=== PATIENT | male | born 2005 | race Two or more races ===

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

== ENCOUNTER 2025-02-01 07:49 | Inpatient (IN) | payer MEDICAID, OTHER ==
[~2025-02-01] VITALS: Ht 205.7 cm; Wt 103.6 kg
[~2025-02-01 07:49] MED LIST: DICL50TA2 PO
[2025-02-01 08:35] VITALS: PULSE 84; RESP 16; O2SAT 96
--- NOTE | 2025-02-01 09:25 | ED.PDOC ---
HPI (NEURO) HPI Comments 19 year old male DESTINY presents to the ED with chief complaint of near-syncope and leg weakness. 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 Patient relays that his mother caught him before he could hurt himself, but since then he has been unsteady on his legs and does not have the strength to get up or walk on his own. Patient notes that he is finding it hard to remember what he ate for dinner yesterday, but generally remembers the events that lead up to his near syncopal episode. Patient denies any numbness, headache, chest pain, SOB, nausea, vomiting, head injury, or back pain. Chief Complaint: General Weakness Time Seen by MD: 09:20 Primary Care Provider: unknown Reviewed Notes: Nurses Notes, Waiter/Waitress Room Service Notes, Medications, Allergies Information Source: Patient, Emergency Med Personnel Mode of Arrival: EMS Severity: Moderate Dizziness/Weakness Severity: Unable to do activities Headache Severity: None Timing: Hours Duration: Since onset Prehospital treatment: 12 Lead EKG Weakness Location: (R) Leg, (L) Leg Onset: At rest Circumstances: Spontaneous Symptoms: Near syncope, Imbalance, Weakness, Difficulty walking History of: None Modifying factors: Nothing Associated Signs and Symptoms: Weakness Past Medical History PAST MEDICAL HISTORY: Asthma Surgical History: Denies all surgeries Family History Family History: Reviewed,noncontributory to illness Social History Smoker: Non-Smoker Alcohol: Denies ETOH Use Drugs: Denies Drug Use Lives In: Home Constitutional: reports: weakness; denies: chills, diaphoresis, fatigue, fever, malaise, sweats, others EENTM: reports: ear ringing; denies: blurred vision, double vision, ear bleeding, ear discharge, ear drainage, ear pain, eye pain, eye redness, hearing loss, mouth pain, mouth swelling, nasal discharge, nose bleeding, nose congestion, nose pain, photophobia, tearing, throat pain, throat swelling, voice changes, others Respiratory: denies: cough, hemoptysis, orthopnea, SOB at rest, shortness of breath, SOB with excertion, stridor, wheezing, others Cardiovascular: reports: syncope; denies: chest pain, dizzy spells, diaphoresis, Dyspnea on exertion, edema, irregular heart beat, left arm pain, lightheadedness, palpitations, PND, others Gastrointestinal: denies: abdomen distended, abdominal pain, blood streaked bowels, constipated, diarrhea, dysphagia, difficulty swallowing, hematemesis, melena, nausea, poor appetite, poor fluid intake, rectal bleeding, rectal pain, vomiting, others Genitourinary: denies: burning, dysuria, flank pain, frequency, hematuria, incontinence, penile discharge, penile sore, pain, testicle pain, testicle swelling, urgency, others Neurological: denies: dizziness, fainting, headache, left sided numbness, left sided weakness, numbness, paresthesia, pre-existing deficit, right sided numbness, right sided weakness, seizure, speech problems, tingling, tremors, weakness, others Musculoskeletal: denies: back pain, gout, joint pain, joint swelling, muscle pain, muscle stiffness, neck pain, others Integumetry: denies: bruises, change in color, change in hair/nails, dryness, laceration, lesions, lumps, rash, wounds, others Allergic/Immunocompromised: denies: Difficulty Healing, Frequent Infections, Hives, Itching, others Hematologic/Lymphatic: denies: anemia, blood clots, easy bleeding, easy bruising, swollen glands, others Endocrine: denies: excessive hunger, excessive sweating, excessive thirst, excessive urination, flushing, intolerance to cold, intolerance to heat, unexplained weight gain, unexplained weight loss, others Psychiatric: denies: anxiety, bipolar disorder, depression, hopeless, panic disorder, schizophrenia, sleepless, suicidal, others All Other Systems: Reviewed and Negative Physical Exam General Appearance: No Apparent Distress, Normal HEENT: Normal ENT Inspection, Pharynx Normal, TMs Normal Neck: Full Range of Motion, Non-Tender, Normal, Normal Inspection Respiratory: Chest Non-Tender, Lungs Clear, No Accessory Muscle Use, No R espiratory Distress, Normal Breath Sounds Cardiovascular: No Edema, No JVD, No Murmur, No Gallop, Normal Peripheral Pulses, Regular Rate/Rhythm Breast Exam: Deferred Gastrointestinal: No Organomegaly, Non Tender, No Pulsatile Mass, Normal Bowel Sounds, Soft Genitalia: Deferred Pelvic: Deferred Rectal: Deferred Extremities: No calf tenderness, Normal capillary refill, Normal inspection, Normal range of motion, Non-tender, No pedal edema Musculoskeletal : Apperance: Normal Neurologic: Alert, fuselage framer II-XII nml as Tested, Normal Affect, Normal Mood Cerebellar Function: Normal Reflexes: Normal Skin: Dry, Normal Color, Warm Lymphatic: No Adenopathy EKG EKG : Pulse Rate (adult): 81 Crawford: Normal Cardiac Rhythm: NSR Block: None Hypertrophy: None ST: Normal Comments Inverted T-waves to III and AVF. Was a procedure done? Was a procedure done?: No Differential Diagnosis (SZ) General Weakness: Anemia, Dehydration, Electrolyte imbalance, Other (Substance abuse, brain tumor, spinal mass, transverse myeloitis) X-Ray, Labs, Meds, VS Vital Signs Date Time Temp Pulse Resp B/P (MAP) Pulse Ox O2 Delivery O2 Flow Rate FiO2 02/01/25 09:25 81 02/01/25 08:44 81 02/01/25 08:35 84 16 96 Room Air* 0 21 02/01/25 08:25 97.9 84 16 131/79 (96) 96 97.9 02/01/25 08:25 84 16 96 Room Air 02/01/25 08:08 98.7 82 16 139/84 (102) 98 98.7 Lab Test 02/01/25 09:48 Range/Units White Blood Count 12.7 H 4.4-10.8 10^3/uL Red Blood Count 5.75 4.5-5.90 10^6/uL Hemoglobin 16.3 13.5-17.5 g/dL Hematocrit 48.6 41.0-53.0 % Mean Corpuscular Volume 84.5 80.0-100.0 fL Mean Corpuscular Hemoglobin 28.2 28.0-32.0 pg Mean Corpuscular Hemoglobin Concent 33.4 32.0-36.0 g/dL Red Cell Distribution Width 13.3 11.8-14.3 % Platelet Count 340 140-450 10^3/uL Mean Platelet Volume 8.2 6.9-10.8 fL Neutrophils (%) (Auto) 77.7 37.0-80.0 % Lymphocytes (%) (Auto) 15.0 10.0-50.0 % Monocytes (%) (Auto) 4.7 0.0-12.0 % Eosinophils (%) (Auto) 2.1 0.0-7.0 % Basophils (%) (Auto) 0.5 0.0-2.0 % Neutrophils # (Auto) 9.9 H 1.6-8.6 10 ^3/uL Lymphocytes # (Auto) 1.9 0.4-5.4 10 ^3/uL Monocytes # (Auto) 0.6 0-1.3 10 ^3/uL Eosinophils # (Auto) 0.3 0-0.8 10 ^3/uL Basophils # (Auto) 0.1 0-0.2 10 ^3/uL Nucleated Red Blood Cells 0.0 % Sodium Level 142 136-145 mmol/L Potassium Level 4.2 3.5-5.1 mmol/L Chloride Level 105 98-107 mmol/L Carbon Dioxide Level 29 20-31 mmol/L Anion Gap 8 5-15 Blood Urea Nitrogen 7 L 9-23 mg/dL Creatinine 0.78 0.700-1.30 mg/dL Glomerular Filtration Rate Calc 130 >90 mL/min BUN/Creatinine Ratio 9.0 L 10.0-20.0 Serum Glucose 101 74-106 mg/dL Calcium Level 9.9 8.7-10.4 mg/dL Total Bilirubin 0.6 0.2-1.0 mg/dL Aspartate Amino Transferase (AST) 29 13-40 U/L Alanine Aminotransferase (ALT) 60 H 7-40 U/L Alkaline Phosphatase 78 46-116 U/L Troponin I High Sensitivity 3 L </=54 ng/L Total Protein 7.8 5.7-8.2 g/dL Albumin 4.8 3.2-4.8 g/dL Thyroid Stimulating Hormone (TSH) 1.56 0.55-4.78 uIU/mL Current Medications Medications (Trade) Dose Ordered Sig/Deloris Route Start Time Stop Time Status Last Admin Sodium Chloride 2,000 ml @ 1,000 mls/hr Q2H ONCE IV 02/01/25 09:30 02/01/25 11:29 DC 02/01/25 09:32 PATIENT: HELEN BACAT: [id number] UNIT: [id number] : 2005 [facility]GE / SEX: 19 / M ADM STATUS: ADM IN SERVICE 6 ORDERING PHYSICIAN: SHANNON TIERNEY MD PROCEDURE(s): HDCT - HEAD W WO CONTRAST REASON: ro brain bleed and brain mass ORDER NUMBER(s): [id number], ACCESSION NUMBER(s): [id number] CLINICAL INFORMATION: 19 years old, Male; rule out brain bleed and brain mass. No other clinical information provided. TECHNIQUE: Axial imaging was obtained through the brain prior to and after the uneventful administration of 80 mL Omnipaque 300 IV contrast. Coronal and sag ittal reformatted images were obtained, reviewed, and stored. Images were reviewed in brain and bone windows. All CT scans at this medical facility are performed using dose modulation techniques as appropriate to a performed exam including the following: Automated exposure control was utilized; adjustment of the MA and/or KV according to patient size; and use of iterative reconstruction technique. CTDIvol = 58.7, 58.89, 0.07 mGy DLP = 1882.88 mGy-cm COMPARISON: None FINDINGS: There is no acute intracranial hemorrhage. No mass effect or midline shift. No abnormal postcontrast enhancement. The ventricles and sulci are within normal limits in size for age. Basal cisterns are patent. The calvarium is unremarkable. Mild mucosal thickening and areas of partial opacification in the visualized portions of the paranasal sinuses. Retention cysts versus polyps in the maxillary sinuses. Mastoid air cells are clear. IMPRESSION: 1. No CT evidence of acute intracranial abnormality. 2. No CT evidence for enhancing mass or abnormal postcontrast enhancement. 3. Paranasal sinus disease as described above. ATED BY: SHAWN JAMISON DO DICTATED DATE/TIME: 02/01/251033 SIGNED BY: SHAWN JAMISON DO SIGNED DATE/TIME: 02/01/251033 CC: 19-year-old male presents here status post syncopal episode. Patient states he was speaking to mother had ringing in the right here and suddenly started to faint. Fall was caught by his mother. Medics were called and patient was assisted to a chair in the ER. I attempted to have the patient stand up however he was extremely weak in the legs and unable to go from a sitting to a standing position. I considered possible brain tumor, spinal masses, transverse myelitis. CT of the brain was done with and without contrast with no evidence of brain tumor. Blood work including CBC CMP troponin has been done which are all unremarkable. At this time however patient is still unable to bear weight on his leg. Therefore patient has been admitted to hospitalist team. For further care. And potentially MRI of the brain. Time of 1ST Reevaluation: 09:50 Reevaluation 1ST: Unchanged Patient Education/Counseling: Diagnosis, Treatment Family Education/Counseling: No Family Present Departure 1 Departure Time of Disposition: 13:01 Impression: Primary Impression: Syncope Qualified Codes: R55 - Syncope and collapse Additional Impressions: Generalized weakness Memory loss Leg weakness, bilateral Disposition: ADMITTED INPATIENT Condition: Stable Critical Care Note Critical Care Time?: No Stability Stability form required: No Heart Score Heart Score: Heart Score Response (Comments) Value History N/A 0 EKG N/A 0 Age N/A 0 Risk Factors N/A 0 Troponin N/A 0 Total 0 I personally scribed for SHANNON TIERNEY MD ([email or web address]) on 02/01/25 at 09:25. Electronically submitted by Marek Cardona ([email or web address]). I personally scribed for SHANNON TIERNEY MD ([email or web address]) on 02/01/25 at 13:02. Electronically submitted by Marek Cardona ([email or web address]). SHANNON TIERNEY MD Feb 01, 2025 09:25
[2025-02-01] MEDS: SODIUM CHLORIDE 0.9% 2,000 ML IV ONE (09:32)
[2025-02-01 09:57] LABS: Basophils # (auto) 0.1 10 ^3/uL (0-0.2); Basophils % (auto) 0.5 % (0.0-2.0); Eosinophils # (auto) 0.3 10 ^3/uL (0-0.8); Eosinophils % (auto) 2.1 % (0.0-7.0); Hematocrit 48.6 % (41.0-53.0); Hemoglobin 16.3 g/dL (13.5-17.5); Lymphocytes # (auto) 1.9 10 ^3/uL (0.4-5.4); Mean Corpuscular Hemoglobin 28.2 pg (28.0-32.0); Mean Corpuscular Hgb Conc. 33.4 g/dL (32.0-36.0); Mean Corpuscular Volume 84.5 fL (80.0-100.0); Monocytes # (auto) 0.6 10 ^3/uL (0-1.3); Monocytes % (auto) 4.7 % (0.0-12.0); Neutrophils # (auto) 9.9 10 ^3/uL (1.6-8.6); Neutrophils % (auto) 77.7 % (37.0-80.0); Platelet Count (auto) 340 10^3/uL (140-450); Red Blood Cells 5.75 10^6/uL (4.5-5.90); Red Cell Distribution Width 13.3 % (11.8-14.3); White Blood Cell 12.7 10^3/uL (4.4-10.8)
[2025-02-01 10:13] LABS: Alkaline Phosphatase 78 U/L (46-116); Anion Gap 8 (5-15); Aspartate Aminotransferase 29 U/L (13-40); Bilirubin, Total 0.6 mg/dL (0.2-1.0); Calcium 9.9 mg/dL (8.7-10.4); Carbon Dioxide 29 mmol/L (20-31); Chloride 105 mmol/L (98-107); Glucose 101 mg/dL (74-106); Potassium 4.2 mmol/L (3.5-5.1); Sodium 142 mmol/L (136-145); Total Protein 7.8 g/dL (5.7-8.2)
[2025-02-01 10:14] LABS: Alanine Aminotransferase 60 U/L (7-40); Albumin 4.8 g/dL (3.2-4.8); Blood Urea Nitrogen 7 mg/dL (9-23)
[2025-02-01] MEDS ORDERED: ONDANSETRON HCL 4 MG/2 ML VIAL IV PRN (10:15)
[2025-02-01] MEDS ORDERED: ACETAMINOPHEN 325 MG TAB PO PRN (10:15)
[2025-02-01] MEDS: IOHEXOL 300 MG/ML 100ML BOTTLE IJ ONE ×2 (10:29)
--- NOTE | 2025-02-01 10:36 | DVH ---
CLINICAL INFORMATION: 19 years old, Male; rule out brain bleed and brain mass. No other clinical in formation provided. TECHNIQUE: Axial imaging was obtained through the brain prior to and after the uneventful administrat ion of 80 mL Omnipaque 300 IV contrast. Coronal and sagittal reformatted images were obtained, review ed, and stored. Images were reviewed in brain and bone windows. All CT scans at this medical facilit y are performed using dose modulation techniques as appropriate to a performed exam including the fol lowing: Automated exposure control was utilized; adjustment of the MA and/or KV according to patient size; and use of iterative reconstruction technique. CTDIvol = 58.7, 58.89, 0.07 mGy DLP = 1882.88 mG y-cm COMPARISON: None FINDINGS: There is no acute intracranial hemorrhage. No mass effect or midline shift. No abnormal pos tcontrast enhancement. The ventricles and sulci are within normal limits in size for age. Basal ciste rns are patent. The calvarium is unremarkable. Mild mucosal thickening and areas of partial opacific ation in the visualized portions of the paranasal sinuses. Retention cysts versus polyps in the maxil yumiko sinuses. Mastoid air cells are clear. IMPRESSION: 1. No CT evidence of acute intracranial abnormality. 2. No CT evidence for enhancing mass or abnormal postcontrast enhancement. 3. Paranasal sinus disease as described above.
[2025-02-01] MEDS: cefTRIAXone 1GM/50ML D5W 50 ML IV SCH (10:37)
--- NOTE | 2025-02-01 10:52 | DVHHP2 ---
History of Present Illness Reason for Visit: Syncope History of Present Illness Rudolph Cool is a 19-year-old male with past medical history of asthma who presents to the ED with sudden weakness. 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 Patient states that he did not fall or lose consciousness or strike his head. He also reports that his abdomen feels like there is a churning sensation. Patient states that this is the 1st time that this has happened. He does state that he had more than enough rest last night before his shift. Patient denies any recent trauma or injury, recent ingestion of spoiled food, recent travels, recent sick contacts, abdominal pain, nausea, vomiting, diarrhea, chest pain, shortness of breath, fever, chills, lightheadedness or dizziness. Patient also denies urinary symptoms or cough or congestion. Patient denies drinking, smoking, or illicit drug use. Patient reports that he feels much better and can walk. Discussed risks and benefits of leaving against medical advice and patient decided to stay. Pulmonary: Asthma Past Surgical History: None Family History: None Smoke: No ALCOHOL: none Drugs: None Lives: with Family Domestic Violence: Neg Review of Systems Constitutional: Yes: Weakness Allergies: Coded Allergies: NO KNOWN ALLERGIES (Unverified , 10/23/22) Exam Vital Signs Vital Signs Date Time Temp Pulse Resp B/P (MAP) Pulse Ox O2 Delivery O2 Flow Rate FiO2 02/01/25 09:25 81 02/01/25 08:35 16 96 Room Air* 0 21 02/01/25 08:25 97.9 131/79 (96) 97.9 General Appearance: Alert, Oriented X3, Cooperative, No acute distress HEENT: Atraumatic, PERRLA, EOMI, Mucous membr. moist/pink Respiratory: Clear to auscultation, Normal air movement Cardiovascular: Regular rate, Normal S1, Normal S2, No murmurs Abdominal: Normal bowel sounds, Soft, No tenderness, No hepatospenomegaly, No masses Extremities: No clubbing, No cyanosis, No edema, Normal pulses, No tenderness/swelling Skin: No significant lesion Neuro: Normal speech, Strength at 5/5 X4 ext, Normal tone, Sensation intact Psych/Mental Status: Mental status NL, Mood NL Labs/Xrays Labs Test 02/01/25 09:48 Range/Units White Blood Count 12.7 H 4.4-10.8 10^3/uL Red Blood Count 5.75 4.5-5.90 10^6/uL Hemoglobin 16.3 13.5-17.5 g/dL Hematocrit 48.6 41.0-53.0 % Mean Corpuscular Volume 84.5 80.0-100.0 fL Mean Corpuscular Hemoglobin 28.2 28.0-32.0 pg Mean Corpuscular Hemoglobin Concent 33.4 32.0-36.0 g/dL Red Cell Distribution Width 13.3 11.8-14.3 % Platelet Count 340 140-450 10^3/uL Mean Platelet Volume 8.2 6.9-10.8 fL Neutrophils (%) (Auto) 77.7 37.0-80.0 % Lymphocytes (%) (Auto) 15.0 10.0-50.0 % Monocytes (%) (Auto) 4.7 0.0-12.0 % Eosinophils (%) (Auto) 2.1 0.0-7.0 % Basophils (%) (Auto) 0.5 0.0-2.0 % Neutrophils # (Auto) 9.9 H 1.6-8.6 10 ^3/uL Lymphocytes # (Auto) 1.9 0.4-5.4 10 ^3/uL Monocytes # (Auto) 0.6 0-1.3 10 ^3/uL Eosinophils # (Auto) 0.3 0-0.8 10 ^3/uL Basophils # (Auto) 0.1 0-0.2 10 ^3/uL Nucleated Red Blood Cells 0.0 % Sodium Level 142 136-145 mmol/L Potassium Level 4.2 3.5-5.1 mmol/L Chloride Level 105 98-107 mmol/L Carbon Dioxide Level 29 20-31 mmol/L Anion Gap 8 5-15 Blood Urea Nitrogen 7 L 9-23 mg/dL Creatinine 0.78 0.700-1.30 mg/dL Glomerular Filtration Rate Calc 130 >90 mL/min BUN/Creatinine Ratio 9.0 L 10.0-20.0 Serum Glucose 101 74-106 mg/dL Calcium Level 9.9 8.7-10.4 mg/dL Total Bilirubin 0.6 0.2-1.0 mg/dL Aspartate Amino Transferase (AST) 29 13-40 U/L Alanine Aminotransferase (ALT) 60 H 7-40 U/L Alkaline Phosphatase 78 46-116 U/L Troponin I High Sensitivity 3 L </=54 ng/L Total Protein 7.8 5.7-8.2 g/dL Albumin 4.8 3.2-4.8 g/dL Thyroid Stimulating Hormone (TSH) 1.56 0.55-4.78 uIU/mL CLINICAL INFORMATION: 19 years old, Male; rule out brain bleed and brain mass. No other clinical information provided. TECHNIQUE: Axial imaging was obtained through the brain prior to and after the uneventful administration of 80 mL Omnipaque 300 IV contrast. Coronal and sagittal reformatted images were obtained, reviewed, and stored. Images were reviewed in brain and bone windows. All CT scans at this medical facility are performed using dose modulation techniques as appropriate to a performed exam including the following: Automated exposure control was utilized; adjustment of the MA and/or KV according to patient size; and use of iterative reconstruction technique. CTDIvol = 58.7, 58.89, 0.07 mGy DLP = 1882.88 mGy-cm COMPARISON: None FINDINGS: There is no acute intracranial hemorrhage. No mass effect or midline shift. No abnormal postcontrast enhancement. The ventricles and sulci are within normal limits in size for age. Basal cisterns are patent. The calvarium is unremarkable. Mild mucosal thickening and areas of partial opacification in the visualized portions of the paranasal sinuses. Retention cysts versus polyps in the maxillary sinuses. Mastoid air cells are clear. IMPRESSION: 1. No CT evidence of acute intracranial abnormality. 2. No CT evidence for enhancing mass or abnormal postcontrast enhancement. 3. Paranasal sinus disease as described above. Assessment/Plan Assessment/Plan Assessment Autonomic imbalance Tinnitus Leukocytosis possible otitis media versus sinusitis History of asthma Plan Admit to med surge CT head NS 2 L given ED Troponin negative TSH UA UDS EKG Antiemetics Pain management Diet IV antibiotics-ceftriaxone Chest x-ray ordered Echo ordered Per patient no home medications that he takes DVT prophylaxis-Lovenox PUD prophylaxis- not indicated no history of GERD or GI bleed Discussed plan of care with patient and nurse Rounding team consider neuro consult if symptoms worsen Plan discussed with: Patient My Orders Orders - THON,SALINA K SHELL MOLDER Procedure Category Date Status Time Ceftriaxone 1gm/50ml PHA 02/01/25 Logged D5w (Rocephin) 10:15 Echo 2d Mode Cardiac US 02/01/25 Logged DOP 10:11 Admit ADMIT 02/01/25 Transmitted 10:11 Allergies IWONA 02/01/25 In Process 10:11 Code Status CODE 02/01/25 Transmitted 10:11 Ondansetron Hcl PHA 02/01/25 Logged (Zofran) 10:15 Complete Blood Count LAB 02/02/25 Verified 04:00 Comprehensive LAB 02/02/25 Verified Metabolic Panel 04:00 Cardiac DIET 02/01/25 Transmitted Diet-2gna,Lofat,Lochol Lunch Acetaminophen Tablet PHA 02/01/25 Transmitted (Tylenol Tablet) 10:15 Sequential IWONA 02/01/25 In Process Compression Device 10:11 Date of Service: Feb 01, 2025 Billing Provider: JOHANA WELCH Common Visit Codes: [id number] INP/OBS CARE (HIGH) JOHANA WELCH Feb 01, 2025 10:52
--- NOTE | 2025-02-01 10:53 | DVH ---
CLINICAL INFORMATION: Pneumonia. No other clinical information provided. TECHNIQUE: Single AP portable chest radiograph was obtained. COMPARISON: None FINDINGS: Lungs: Clear. Cardiac: Heart size is within normal limits. Pulmonary vasculature: Unremarkable. Mediastinum/rasheed: Unremarkable. Bones: No acute osseous abnormality identified. Other: No other significant findings. IMPRESSION: No evidence of acute disease in the chest.
[2025-02-01] MEDS: FLUTICASONE PROP NASAL SPR 0.05 % (50MCG) 16GM EACHNOSTRI SCH (11:12)
[2025-02-01 14:03] VITALS: BP 118/69; PULSE 66; RESP 16; TEMP 97.8; O2SAT 98
[2025-02-01 14:28] VITALS: BP 118/69; PULSE 66; RESP 16; RESP 18; TEMP 97.8; O2SAT 98
[2025-02-01 17:00] VITALS: BP 108/56; PULSE 67; RESP 16; TEMP 98.4; O2SAT 98
[2025-02-01 20:00] VITALS: PULSE 64; RESP 16; O2SAT 95
[2025-02-01 21:00] VITALS: BP 109/61; PULSE 64; RESP 16; TEMP 97.8; O2SAT 95
[2025-02-02] VITALS (8 sets, daily range): BP systolic 108–122; BP diastolic 54–79; PULSE 68–85; RESP 16–20; TEMP 97.7–98.6; O2SAT 97–100
[2025-02-02 07:10] LABS: Urine Bacteria None Seen /hpf (None Seen)
[2025-02-02 07:25] LABS: Urine Blood Negative /uL (Negative); Urine Clarity Clear (Clear); Urine Color Light-Yellow (Yellow); Urine Protein, UAD Negative (Negative); Urine Specific Gravity 1.013 (1.001-1.035); Urine Squamous Epithelial Cell None Seen /hpf (<5); Urine Urobilinogen Normal (Negative); Urine WBC < 1 /HPF (0-3); Urine pH 7.5 (5.0-9.0)
[2025-02-02 07:25] LABS: Basophils # (auto) 0.1 10 ^3/uL (0-0.2); Basophils % (auto) 0.7 % (0.0-2.0); Eosinophils # (auto) 0.5 10 ^3/uL (0-0.8); Eosinophils % (auto) 5.1 % (0.0-7.0); Hematocrit 47.6 % (41.0-53.0); Hemoglobin 15.9 g/dL (13.5-17.5); Lymphocytes # (auto) 3.2 10 ^3/uL (0.4-5.4); Lymphocytes % (auto) 33.7 % (10.0-50.0); Mean Corpuscular Hemoglobin 28.2 pg (28.0-32.0); Mean Corpuscular Hgb Conc. 33.5 g/dL (32.0-36.0); Mean Corpuscular Volume 84.3 fL (80.0-100.0); Monocytes # (auto) 0.8 10 ^3/uL (0-1.3); Neutrophils # (auto) 4.9 10 ^3/uL (1.6-8.6); Neutrophils % (auto) 52.5 % (37.0-80.0); Nucleated Red Blood Cells % 0.1 %; Platelet Count (auto) 335 10^3/uL (140-450); Red Blood Cells 5.65 10^6/uL (4.5-5.90); Red Cell Distribution Width 13.3 % (11.8-14.3); White Blood Cell 9.4 10^3/uL (4.4-10.8)
[2025-02-02 07:42] LABS: Albumin 4.5 g/dL (3.2-4.8); Alkaline Phosphatase 67 U/L (46-116); Aspartate Aminotransferase 33 U/L (13-40); BUN/Creatinine Ratio 8.1 (10.0-20.0); Bilirubin, Total 0.9 mg/dL (0.2-1.0); Calcium 9.8 mg/dL (8.7-10.4); Chloride 104 mmol/L (98-107); Potassium 3.6 mmol/L (3.5-5.1); Sodium 140 mmol/L (136-145); Total Protein 7.3 g/dL (5.7-8.2)
[2025-02-02 07:45] LABS: Alanine Aminotransferase 65 U/L (7-40); Blood Urea Nitrogen 7 mg/dL (9-23); Glucose 65 mg/dL (74-106)
[2025-02-02 07:49] LABS: Anion Gap 10 (5-15); Carbon Dioxide 26 mmol/L (20-31)
[2025-02-02 08:01] LABS: Amphetamine Screen, Urine Neg (NEGATIVE); Barbiturate Scree,Urine Neg (NEGATIVE); Benzodiazephine Screen, Urine Neg (NEGATIVE); Cannabinoid Screen, Urine Neg (NEGATIVE); Cocaine Screen, Urine Neg (NEGATIVE); Opiate Scree,Urine Neg (NEGATIVE); Phencyclidine Screen, Urine Neg (NEGATIVE)
--- NOTE | 2025-02-02 13:17 | DVHPN2 ---
Reviewed: Care Plan, H&P, Labs, Medications, Previous Orders, Radiology Changes from previous H/P or p: No Changes Objective Vitals Vital Signs Date Time Temp Pulse Resp B/P (MAP) Pulse Ox O2 Delivery O2 Flow Rate FiO2 02/02/25 11:48 98.0 76 18 112/58 (76) 100 98.0 02/02/25 08:00 Room Air* 0 21 Intake/Output Intake and Output 02/02/25 07:00 Intake Total 1000 ml Balance 1000 ml Intake Oral 1000 ml Medications Current Medications Medications Dose Ordered Sig/Deloris Route Start Time Stop Time Status Last Admin Dose Admin Ceftriaxone Sodium 50 ml @ 100 mls/hr DAILY@09 IV 02/01/25 10:15 02/02/25 08:44 100 MLS/HR Ondansetron HCl 4 mg Q4HP PRN IV 02/01/25 10:15 Acetaminophen 650 mg Q6HP PRN PO 02/01/25 10:15 Fluticasone Propionate 50 mcg Q12HR EACHNOSTRI 02/01/25 10:30 02/02/25 10:26 50 MCG Laboratory Results Laboratory Tests 02/02/25 05:38 Chemistry Test 02/02/25 05:38 Albumin 4.5 g/dL (3.2-4.8) Calcium Level 9.8 mg/dL (8.7-10.4) Total Protein 7.3 g/dL (5.7-8.2) LFT Test 02/02/25 05:38 Alanine Aminotransferase (ALT) 65 U/L (7-40) H Alkaline Phosphatase 67 U/L (46-116) Aspartate Amino Transferase (AST) 33 U/L (13-40) Total Bilirubin 0.9 mg/dL (0.2-1.0) Urinalysis Test 02/02/25 07:08 Urine Color Light-yellow (Yellow) Urine Clarity Clear (Clear) Urine pH 7.5 (5.0-9.0) Urine Specific [place] 1.013 (1.001-1.035) Urine Protein Negative (Negative) Urine Ketones Negative (Negative) Urine Blood Negative /uL (Negative) Urine Nitrite Negative (Negative) Urine Bilirubin Negative (Negative) Urine Urobilinogen Normal mg/dL (Negative) Urine Leukocyte Esterase Negative /uL (Negative) Urine RBC 1 /hpf (0 - 3) Urine Microscopic WBC < 1 /HPF (0-3) Urine Squamous Epithelial Cells None seen /hpf (<5) Urine Bacteria None seen /hpf (None Seen) Urine Glucose Normal mg/dL (Normal) Labs and/or images reviewed: Labs reviewed by me, Image(s) reviewed by me Assessment/Plan Assessment/Plan Autonomic imbalance Tinnitus Leukocytosis possible otitis media versus sinusitis: Rocephin History of asthma CT head negative Chest x-ray negative Plan discussed with: Patient Date of Service: Feb 02, 2025 Billing Provider: JOSEFINA COLLADO MD Common Visit Codes: [id number] INP/OBS CARE(HIGH) JOSEFINA COLLADO MD Feb 02, 2025 13:17
--- NOTE | 2025-02-02 20:49 | DVHSR ---
APPROVED REPORT EXAM: LIMITED Two-dimensional and M-mode echocardiogram with Doppler and color Doppler. Blood Pressure: 109/56 mmHg INDICATION Syncope RISK FACTORS Obesity: Height: 6' 9", Weight: 210 DIMENSIONS LVDd5.0 (3.8-5.7cm)LA (2D)3.7 (1.9-4.0cm)Aortic Root2.7 (2.0-3.7cm) LVDs3.6 (2.5-4.0cm)LA (MM) (1.9-4.0cm)Aortic Cusp Exc1.5 (1.5-2.0cm) EF (%) 55.0 (55-70%)Rt. Atrium3.4 (1.9-4.0cm)Asc. Aorta cm IVSd0.9 (0.7-1.1cm)RV (D) (1.8-2.4cm) PWd0.9 (0.7-1.1cm) Mitral Valve MitralMitral Stenosis E wave1.00m/sMV Mean GR.mmHg A wave0.50m/sMV Peak GR.mmHg E/A ratio2.02D MVAcm2 Aortic Valve Aortic ValveAortic Stenosis V10.60m/Kala Mean GR.3mmHg V21.20m/Kala Peak GR.6mmHg LVOT Diameter1.9 (1.8-2.4cm)Doppler AVA1.42cm2 Pulmonic Valve V20.70m/s Other Information Quality : Technically LimitedRhythm : Technically limited study due to body habitus. Conclusion LV EF IS 65% NORMAL VALVES NORMAL RV FUNCTION NO EFFUSION
[2025-02-03 01:00] VITALS: BP 108/70; PULSE 88; RESP 19; TEMP 97.9; O2SAT 100
[2025-02-03 05:00] VITALS: BP 120/77; PULSE 86; RESP 18; TEMP 97.9; O2SAT 98
[2025-02-03 08:00] VITALS: PULSE 75; RESP 18; O2SAT 98
[2025-02-03 08:29] VITALS: BP 128/62; PULSE 75; RESP 18; TEMP 98.6; O2SAT 98
--- NOTE | 2025-02-03 09:45 | DVHPN2 ---
Reviewed: Care Plan, H&P, Labs, Medications, Previous Orders, Radiology Changes from previous H/P or p: No Changes Objective Vitals Vital Signs Date Time Temp Pulse Resp B/P (MAP) Pulse Ox O2 Delivery O2 Flow Rate FiO2 02/03/25 08:29 98.6 75 18 128/62 (84) 98 98.6 02/03/25 08:00 Room Air* 0 21 Intake/Output Intake and Output 02/03/25 07:00 Intake Total 1885 ml Output Total 500 ml Balance 1385 ml Intake Oral 1885 ml Output Urine Total 500 ml # Voids 2 Medications Current Medications Medications Dose Ordered Sig/Deloris Route Start Time Stop Time Status Last Admin Dose Admin Ceftriaxone Sodium 50 ml @ 100 mls/hr DAILY@09 IV 02/01/25 10:15 02/03/25 08:03 100 MLS/HR Ondansetron HCl 4 mg Q4HP PRN IV 02/01/25 10:15 Acetaminophen 650 mg Q6HP PRN PO 02/01/25 10:15 Fluticasone Propionate 50 mcg Q12HR EACHNOSTRI 02/01/25 10:30 02/02/25 10:26 50 MCG Laboratory Results Laboratory Tests 02/02/25 05:38 Urinalysis Test 02/02/25 07:08 Urine Color Light-yellow (Yellow) Urine Clarity Clear (Clear) Urine pH 7.5 (5.0-9.0) Urine Specific [place] 1.013 (1.001-1.035) Urine Protein Negative (Negative) Urine Ketones Negative (Negative) Urine Blood Negative /uL (Negative) Urine Nitrite Negative (Negative) Urine Bilirubin Negative (Negative) Urine Urobilinogen Normal mg/dL (Negative) Urine Leukocyte Esterase Negative /uL (Negative) Urine RBC 1 /hpf (0 - 3) Urine Microscopic WBC < 1 /HPF (0-3) Urine Squamous Epithelial Cells None seen /hpf (<5) Urine Bacteria None seen /hpf (None Seen) Urine Glucose Normal mg/dL (Normal) Labs and/or images reviewed: Labs reviewed by me, Image(s) reviewed by me Assessment/Plan Assessment/Plan Autonomic imbalance Tinnitus Leukocytosis possible otitis media versus sinusitis: Rocephin History of asthma CT head negative Chest x-ray negative Patient feels better and wants to go home Plan discussed with: Patient My Orders Orders - JOSEFINA COLLADO MD Procedure Category Date Status Time Pt Request For Service PT 02/02/25 Logged 13:22 Date of Service: Feb 03, 2025 Billing Provider: JOSEFINA COLLADO MD Common Visit Codes: [id number] INP/OBS CARE(HIGH) JOSEFINA COLLADO MD Feb 03, 2025 09:45
[2025-02-03] MEDS ORDERED: AUG875T PO (09:47)
--- NOTE | 2025-02-03 09:52 | DVHDS2 ---
Discharge Summary Date of Admission Feb 01, 2025 at 10:11 Date of Discharge: Feb 03, 2025 Admitting Diagnosis Tinnitus and dizziness Wounds: None Labs/Diagnostic Data: Laboratory Results Test 02/02/25 07:08 02/02/25 05:38 02/01/25 11:11 02/01/25 09:48 Urine Color Light-yellow (Yellow) Urine Clarity Clear (Clear) Urine pH 7.5 (5.0-9.0) Urine Specific [place] 1.013 (1.001-1.035) Urine Protein Negative (Negative) Urine Ketones Negative (Negative) Urine Blood Negative /uL (Negative) Urine Nitrite Negative (Negative) Urine Bilirubin Negative (Negative) Urine Urobilinogen Normal mg/dL (Negative) Urine Leukocyte Esterase Negative /uL (Negative) Urine RBC 1 /hpf (0 - 3) Urine Microscopic WBC < 1 /HPF (0-3) Urine Squamous Epithelial Cells None seen /hpf (<5) Urine Bacteria None seen /hpf (None Seen) Urine Glucose Normal mg/dL (Normal) Urine Opiates Screen Neg (NEGATIVE) Urine Fentanyl Screen Neg (NEGATIVE) Urine Barbiturates Screen Neg (NEGATIVE) Urine Phencyclidine Screen Neg (NEGATIVE) Urine Amphetamines Screen Neg (NEGATIVE) Urine Benzodiazepines Screen Neg (NEGATIVE) Urine Cocaine Screen Neg (NEGATIVE) Urine Cannabinoids Screen Neg (NEGATIVE) White Blood Count 9.4 10^3/uL (4.4-10.8) Red Blood Count 5.65 10^6/uL (4.5-5.90) Hemoglobin 15.9 g/dL (13.5-17.5) Hematocrit 47.6 % (41.0-53.0) Mean Corpuscular Volume 84.3 fL (80.0-100.0) Mean Corpuscular Hemoglobin 28.2 pg (28.0-32.0) Mean Corpuscular Hemoglobin Concent 33.5 g/dL (32.0-36.0) Red Cell Distribution Width 13.3 % (11.8-14.3) Platelet Count 335 10^3/uL (140-450) Mean Platelet Volume 8.6 fL (6.9-10.8) Neutrophils (%) (Auto) 52.5 % (37.0-80.0) Lymphocytes (%) (Auto) 33.7 % (10.0-50.0) Monocytes (%) (Auto) 8.0 % (0.0-12.0) Eosinophils (%) (Auto) 5.1 % (0.0-7.0) Basophils (%) (Auto) 0.7 % (0.0-2.0) Neutrophils # (Auto) 4.9 10 ^3/uL (1.6-8.6) Lymphocytes # (Auto) 3.2 10 ^3/uL (0.4-5.4) Monocytes # (Auto) 0.8 10 ^3/uL (0-1.3) Eosinophils # (Auto) 0.5 10 ^3/uL (0-0.8) Basophils # (Auto) 0.1 10 ^3/uL (0-0.2) Nucleated Red Blood Cells 0.1 % Sodium Level 140 mmol/L (136-145) Potassium Level 3.6 mmol/L (3.5-5.1) Chloride Level 104 mmol/L (98-107) Carbon Dioxide Level 26 mmol/L (20-31) Anion Gap 10 (5-15) Blood Urea Nitrogen 7 mg/dL (9-23) Creatinine 0.86 mg/dL (0.700-1.30) Glomerular Filtration Rate Calc 126 mL/min (>90) BUN/Creatinine Ratio 8.1 (10.0-20.0) Serum Glucose 65 mg/dL (74-106) Calcium Level 9.8 mg/dL (8.7-10.4) Total Bilirubin 0.9 mg/dL (0.2-1.0) Aspartate Amino Transferase (AST) 33 U/L (13-40) Alanine Aminotransferase (ALT) 65 U/L (7-40) Alkaline Phosphatase 67 U/L (46-116) Total Protein 7.3 g/dL (5.7-8.2) Albumin 4.5 g/dL (3.2-4.8) Troponin I High Sensitivity < 3 ng/L (</=54) Thyroid Stimulating Hormone (TSH) 1.56 uIU/mL (0.55-4.78) Other Laboratory Tests 02/02/25 05:38 Brief Hx & Hospital Course: 19-year-old male with no previous medical history came in for dizziness and tinnitus and imbalance found to have mild leukocytosis secondary to ordered is media CT head negative treated with Rocephin chest x-ray negative history of asthma discharged home on Augmentin. 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 Patient was counseled about treatment plan, medications, possible side effects, patientverbalized understanding. All questions were answered to the best of my ability. This discharge took greater then 30 minutes in planning, reviewing documentation, counseling the patient, and discussing with other team members." ASSESSMENT ASSESSMENT Hospital Course Improved Assessment Autonomic imbalance Tinnitus Leukocytosis possible otitis media versus sinusitis: Treated with Rocephin History of asthma CT head negative Chest x-ray negative Date of Service: Feb 03, 2025 Billing Provider: JOSEFINA COLLADO MD Common Visit Codes: [id number] DISCH DAY >30min JOSEFINA COLLADO MD Feb 03, 2025 09:52
[2025-02-03 10:37] VITALS: BP 126/65; PULSE 76; RESP 15; TEMP 98.6; O2SAT 98
--- NOTE | 2025-02-04 10:44 | ECG ---
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
== END 2025-02-03 11:21 | disposition home or self-care (01) | DRG 74 ==
LOC: EDBD 07:49 → ER 07:49 → OVERFLOW 10:11 → CENTRAL 14:03
DX: G90.89 Other disorders of autonomic nervous system (principal); D72.829 Elevated white blood cell count, unspecified; J45.909 Unspecified asthma, uncomplicated; R41.3 Other amnesia; J32.9 Chronic sinusitis, unspecified; H93.11 Tinnitus, right ear; H66.91 Otitis media, unspecified, right ear; Z87.09 Personal history of other diseases of the respiratory system
CPT/HCPCS: 36415; 70470; 71045; 80053; 80307; 81001; 84443; 84484; 85025; 93005; 93306; 96360; 97163; G0378